=== PATIENT | male | born 1960 | race Hispanic/Latino ===

== ENCOUNTER 2024-10-16 19:09 | Emergency (ER) | payer SELFPAY ==
[~2024-10-16] VITALS: Ht 165.1 cm; Wt 69.9 kg
[~2024-10-16 19:09] MED LIST: ASPIRIN81 MG PO; CARVEDILOL3.125 MG PO; CLOPIDOGREL75 MG PO; FUROSEMIDE40 MG PO; GLIMEPIRIDE1 MG PO; GLIMEPIRIDE2 MG PO; LISINOPRIL20 MG PO; PRAVASTATIN SOD40 MG PO; TRESIBA FL100 UNIT/1 SQ
[2024-10-16 19:23] VITALS: PULSE 88; RESP 20; TEMP 98.2
[2024-10-16 19:51] LABS: LEUKOCYTE ESTERASE ,URINE MODERATE (NEGATIVE); PROTEIN,URINE DIPSTICK 2+ (NEGATIVE); URINE UROBILINOGEN 0.2 mg/dL (0.2 - 1)
[2024-10-16 20:00] LABS: WBC,URINE (MAN) 21-50 /HPF (0-5)
[2024-10-16] MEDS ORDERED: CEPHALEXIN500 MG PO (20:31)
[2024-10-16] MEDS ORDERED: CIPRO500 MG PO (20:33)
[2024-10-16 20:50] VITALS: BP 145/84; PULSE 84; RESP 18; O2SAT 95
== END 2024-10-16 20:52 | disposition home or self-care (01) ==
LOC: ER 19:13
DX: R30.0 Dysuria (principal); N39.0 Urinary tract infection, site not specified; I10 Essential (primary) hypertension; E11.9 Type 2 diabetes mellitus without complications; E78.5 Hyperlipidemia, unspecified; I25.10 Atherosclerotic heart disease of native coronary artery without angina pectoris; I25.2 Old myocardial infarction; Z95.1 Presence of aortocoronary bypass graft; I69.354 Hemiplegia and hemiparesis following cerebral infarction affecting left non-dominant side
CPT/HCPCS: 81001; 87086; 87186; 99282